=== PATIENT | male | born 1940 | race Caucasian/White ===

== ENCOUNTER → 2017-12-10 | Outpatient (CLI) | payer MEDICARE, OTHER | LOC: RAD 07:14 | PROVIDERS: ATTEND Family Medicine | DX: Z02.9 Encounter for administrative examinations, unspecified (principal) ==

== ENCOUNTER 2018-03-05 09:54 | Outpatient (RCR) | payer MEDICARE, OTHER ==
[2018-03-01 10:31] VITALS: BP 150/70
[~2018-03-05 09:54] MED LIST: ALLO100T70 PO; AMLO-104 PO; ASCO500C9 PO; ASPI-757 PO; ATOR40TA24 PO; FLAX100041 PO; LISI30TA PO; METF-410 PO; MOMR ENA; MULT-865 PO; NIA500 PO; OMEP-218 PO; SILD100T59 PO; VITA-200 PO
[2018-03-06] MEDS ORDERED: TAMS0.4C25 PO (09:46)
== END 2018-03-22 09:21 | disposition home or self-care (01) ==
LOC: RAON 09:54
PROVIDERS: ATTEND Radiology Radiation Oncology
DX: C61 Malignant neoplasm of prostate (principal)
CPT/HCPCS: 36415; 84153; G0463; 99212

== ENCOUNTER 2019-03-18 09:55 | Outpatient (RCR) | payer MEDICARE, OTHER ==
[2019-03-11 11:57] VITALS: BP 113/73
[~2019-03-18 09:55] MED LIST changes: -METF-410 PO; +METF-450 PO; +TAMS0.4C25 PO
[2019-03-18 10:09] VITALS: BP 131/74
--- NOTE | 2019-03-18 11:41 | ONCOLOGY FOLLOW UP NOTE ---
EVENT DATE: March 18, 2019 CHIEF COMPLAINT/REASON FOR VISIT 1. 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 Pre-treatment PSA of 7 ng/mL despite being on Avodart and Proscar. Oncotype DX 21. 2. Patient treated with external beam radiation therapy with IMRT to 7560 cGy in 2015. He completed radiation therapy on June 23, 2016. INTERVAL HISTORY Mr. Shabazz clinically is doing well. His AUA score is stable at 6. He has baseline nocturia but no change in the last year. He remains on Flomax. He does have some lower back pain in the evenings but that is related to scoliosis. PSA has continued to fall after the radiation therapy course. His last PSA in February was 2.0. His new PSA on March 11 is 0.95. 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 MEDICATIONS 1. Flomax 0.4 mg every day. 2. Aspirin 325. 3. Allopurinol 100 mg every day. 4. Lisinopril 30 mg every day. 5. Prilosec 20 mg every day. 6. Amlodipine 10 mg every day. 7. Niacin 500 mg every day. 8. Nasonex 17 g spray. 9. MVI. 10. Metformin 500 mg b.i.d. 11. Lipitor 40 mg every day. 12. Flaxseed Oil 100,000 mg every day. ALLERGIES None. SOCIAL HISTORY Patient is retired from [employer]; retired at age 63. He is and takes care of his , who is unfortunately in poor health. She has chronic fatigue syndrome. Patient is nonsmoker. REVIEW OF SYSTEMS Comprehensive review of systems notable for lower back pain in the evening. Otherwise, unremarkable. PHYSICAL EXAMINATION GENERAL: Pleasant 78-year old male who appears his stated age. VITAL SIGNS: BP 131/74, pulse 63, respirations 16, O2 sat 93% on room air. No lymphadenopathy. LUNGS: Clear bilaterally. HEART SOUNDS: Regular. ABDOMEN: Soft. No gross organomegaly. MUSCULOSKELETAL: No pain on percussion of the spine or ribs. He has cervical kyphosis as well as the lumbar scoliosis. RECTAL: Deferred due to following PSA. IMPRESSION Patient has had an excellent response to the radiation therapy course. No medication changes were necessary. The [employer] has concurred this past year that PSAs of 2 or lower are acceptable following radiotherapy course and the patient is actually under that number at this time. Patient will follow up with Dr. Mcnulty and Dr. Hawley per schedule. I will see him in a year. I will probably release him from the clinic at the 5 year interval if everything continues to be stable. He will have a PSA prior to that appointment. KELLIE
== END 2019-04-28 15:38 | disposition home or self-care (01) ==
LOC: RAON 09:55
PROVIDERS: ATTEND Radiology Radiation Oncology
DX: Z85.46 Personal history of malignant neoplasm of prostate (principal); M54.5 Low back pain; Z79.899 Other long term (current) drug therapy
CPT/HCPCS: 36415; 84153; G0463; 99212